=== PATIENT | male | born 1975 | race Caucasian/White ===

== ENCOUNTER 2023-09-09 07:06 | Emergency (ER) | payer OTHER, SELFPAY ==
[2023-09-09 07:08] VITALS: BP 156/99
[2023-09-09 07:18] VITALS: BMI 30.1
--- NOTE | 2023-09-09 07:22 | ED.GENMED ---
History of Present Illness
General
Chief Complaint: Flank Pain
Time Seen by Provider: 09/09/23 07:11
Travel History
Have you had any contact with someone who has COVID-19?: No
Do you have any symptoms of coronavirus? Fever > 100 degrees, chills, cough, shortness of breath, sore throat, loss of taste or smell, muscle aches, or headache?: No
History of Present Illness
History of Present Illness:
48-year-old male with past history of kidney stones presents to the emergency department for evaluation of acute onset right flank pain beginning this morning. Pain is nonradicular at this time. Feels comparable to past stones. Has required
ureteral stenting with lithotripsy once in the past. Denies any associated fever, chills, sweats, vomiting, dysuria, hematuria. No history of intra-abdominal surgeries
Past History
Past History
ED Past Medical History: Other (History kidney stones)
ED Past Surgical History: Orthopedic (History of right shoulder surgery)
Social History
Tobacco: Non-smoker
Alcohol: Occasional
Personal:
Living: with family
Family History
Family History: Unable to obtain
Review of Systems
Review of Systems
Allergies reviewed?: Yes
All Other Systems: ROS reviewed and negative except as documented in HPI and ROS
Phy Exam
Physical Exam
Physical Exam:
GEN: Mildly diaphoretic, appears uncomfortable
Eyes: PERRLA, EOMs intact, no scleral icterus
HENT: NCAT, oral mucosa moist
Lungs: CTAB
Cardiac: RRR, no M/R/G
Abdomen: S, NT, ND, NABS, no masses or hepatosplenomegaly
Neuro: AO x 3
MSK: No gross deformity or ecchymosis.
Skin: No rashes, petechiae. Normal color, no pallor or jaundice.
Psych: Calm, cooperative, proper hygiene
Course
Orders/Labs/Results
Orders:
Orders
09/09/23 07:21
0.9% Sodium Chloride 1000 ml [Nss] 1,000 ml IV BOLUS
Ketorolac [Toradol] 15 mg IV NOW STA
09/09/23 07:34
Complete Blood Count/With Diff Urgent
Comprehensive Metabolic Panel Urgent
09/09/23 09:00
Urinalysis Reflex To Culture Urgent
Date Specimen was Collected: 09/09/23
Time Specimen was Collected: 08:59
Urine Microscopic Reflex Cult Urgent
Urine Culture Urgent
YULISSA Source: U
Specimen Description:
Date Specimen was Collected: 09/09/23
Time Specimen was Collected: 08:59
Abnormal Lab Results
09/09/23 09/09/23
07:34 09:00
Absolute Monos (auto) 0.8 H 10^3/uL
(0.1-0.6)
Monocytes % 10.8 H %
(1.7-9.3)
Glucose 102 H mg/dl
(70-99)
Total Bilirubin 1.6 H mg/dl
(0.2-1.3)
Ur Occult Blood Reflex 4+ A
(Negative)
Leukocyte Esterase Rfl Trace A
(Negative)
Urine RBC 7-10 A /HPF
(0-2)
Urine WBC (Reflex) 11-15 A /HPF
(0-5)
Urine Bacteria (Reflex) Few A
(Negative)
09/09/23 07:34
09/09/23 07:34
Vital Signs
Initial and Last Documented VS:
Initial Vital Signs
Temp Pulse Resp BP Pulse Ox
97.9 F 62 18 156/99 98
09/09/23 07:08 09/09/23 07:08 09/09/23 07:08 09/09/23 07:08 09/09/23 07:08
Last Documented Vital Signs
Temp Pulse Resp BP Pulse Ox
97.9 F 62 18 156/99 98
09/09/23 07:08 09/09/23 07:08 09/09/23 07:08 09/09/23 07:08 09/09/23 07:08
MDM/Problems Addressed
MDM/Problems Addressed:
Patient's pain resolved fully after IV Toradol. I discussed the utility of imaging versus conservative management given that he is asymptomatic with no signs of sepsis, unremarkable labs, and a negative urinalysis. Patient is comfortable with this
approach given that he has had stones in the past and passed them without difficulty. Patient was prescribed Toradol, Flomax, and oxycodone for breakthrough pain. He does have an outpatient urologist, Dr Rosado, and David, advised him to
call today for outpatient follow-up should his symptoms not improved. Strongly encouraged to follow-up with the emergency department if he develops a fever or intractable pain despite oral medications at which time imaging will be necessary.
*Critical Care Note
Total Time (30-74mins, 75-104mins- exclusive of procedures): Not Applicable
ED Attending Note
-
Portions of this chart may have been created with voice recognition software.� Occasional wrong word or��sound alike� substitutions may have occurred due to the inherent limitations of voice recognition software.
Discharge Plan
Departure
Patient Disposition: Home (Routine Discharge)
Date of Disposition: 09/09/23
Time of Disposition: 09:30
Patient with high blood pressure during this ER visit?: No
Discharge Problem:
Renal colic on right side
Instructions: Renal Colic (DC)
Prescriptions:
New
ketorolac 10 mg tablet
10 mg PO Q6H 5 Days Qty: 20 0RF
tamsulosin [Flomax] 0.4 mg capsule
0.4 mg PO DAILY Qty: 14 0RF
oxycodone 5 mg tablet
5 mg PO Q8H PRN (Reason: Pain) Qty: 8 0RF
No Action
hydrocodone-acetaminophen [[place]] 1 EACH tablet
1 ea PO Q6HPRN PRN (Reason: pain) 10 Days Qty: 30 0RF
lorazepam 0.5 MG tablet
0.5 mg PO Q8HPRN PRN (Reason: pain/spasm) Qty: 40 0RF
oxycodone-acetaminophen 5 MG/325 MG tablet
1 tab PO Q4HPRN PRN (Reason: pain) Qty: 15 0RF
ondansetron 4 MG tablet,disintegrating
4 mg PO TIDPRN PRN (Reason: nausea/vomiting) Qty: 15 0RF
levofloxacin 500 MG tablet
500 mg PO DAILY Qty: 7 0RF
Referrals:
Javier Nicole MD [Family Provider] -
Interventions
Interventions:
*Risk Screen - Suicide Last Done: 09/09/23 07:08
*General Assessment Last Done: 09/09/23 07:08
*Neglect/Abuse Screening Last Done: 09/09/23 07:08
ED- Fall Risk Assessment Last Done: 09/09/23 09:40
*ED COVID-19 Vaccine History Last Done: 09/09/23 09:40
*Nursing Disposition Last Done: 09/09/23 09:40
ZS-Cuvcfp-Qyrtbuobei Assessment Last Done: 09/09/23 07:33
ED-Male Genitourinary Assessment Last Done: 09/09/23 07:33
Discharge Date and Time
Discharge Date/Time: 09/09/23 09:42
[2023-09-09] MEDS: TORADOL 15 MG IV (07:29)
[2023-09-09] MEDS: NSS 1000 IV (07:32)
[2023-09-09 07:45] LABS: % Eosinophils 4.9 % (0-6); % Immature Granulocytes 0.4 % (0-0.5); % Lymphocytes 31.9 % (20.5-51.1); % Monocytes 10.8 % (1.7-9.3); Absolute Basophils 0.1 10^3/uL (0-0.2); Absolute Eosinophils 0.4 10^3/uL (0-0.7); Absolute Lymphocytes 2.5 10^3/uL (1.2-3.4); Absolute Monocytes 0.8 10^3/uL (0.1-0.6); Hematocrit 44.3 % (39.0-52.0); Hemoglobin 15.5 g/dL (13.0-18.0); Mean Corpuscular Hgb 30.6 pg (27.0-31.0); Mean Corpuscular Volume 87.5 fL (80.0-94.0); Mean Platelet Volume 9.8 fL (7.4-10.4); Nucleated Red Blood Cells % 0 % (-); Platelet Count 312 10^3/uL (130-400); Red Blood Cell Count 5.06 10^6/uL (4.70-6.10); Red Cell Dist. Width 12.3 % (11.5-14.5); White Blood Cell Count 7.8 10^3/uL (4.8-10.8)
[2023-09-09 07:58] LABS: ALT (SGPT) 44 U/L (0-50); AST (SGOT) 35 U/L (17-59); Albumin 4.4 g/dl (3.5-5.0); Alkaline Phosphatase 72 U/L (38-126); Blood Urea Nitrogen 18 mg/dl (9-20); Calcium 9.6 mg/dl (8.4-10.2); Carbon Dioxide 27 mmol/L (22-30); Chloride 104 mmol/L (98-107); Estimated Creatinine Clearance 101 ml/min; Glucose 102 mg/dl (70-99); Potassium 4.2 mmol/L (3.5-5.1); Sodium 141 mmol/L (135-145); Total Bilirubin 1.6 mg/dl (0.2-1.3); Total Protein 7.5 g/dl (6.3-8.2); eGFR > 60.00
[2023-09-09 09:11] LABS: Urine Albumin Trace (Neg - Trace); Urine Bilirubin Negative (Negative); Urine Character Clear (Clear); Urine Color Yellow; Urine Glucose Negative (Negative); Urine Ketone Negative (Negative); Urine Leukocyte Trace (Negative); Urine Nitrite Negative (Negative); Urine Occult Blood 4+ (Negative); Urine Specific Gravity 1.025 (<1.030); Urine Urobilinogen Negative (Neg - 1+)
[2023-09-09 09:52] LABS: Urine Mucus Moderate; Urine Squamous Cell 0-2 /LPF (Few)
[2023-09-09 09:54] LABS: Urine Bacteria Few (Negative)
== END 2023-09-09 09:42 | disposition home or self-care (01) ==
LOC: EMR 07:06
PROVIDERS: Physician Assistant; EMERGENCY PHYSICIAN Emergency Medicine; FAMILY PHYSICIAN Family Medicine
DX: N23 Unspecified renal colic (principal); Z87.442 Personal history of urinary calculi
CPT/HCPCS: 99283; 96374; 96361; 80053; 81003; 81015; 85025; 87086